=== PATIENT | male | born 1995 | race Caucasian/White ===

== ENCOUNTER → 2023-02-02 14:04 | Outpatient (CLI) | payer BC, SELFPAY | PROVIDERS: PCP Family Medicine; Visit Provider Internal Medicine Pulmonary Disease | DX: R06.81 Apnea, not elsewhere classified (principal); R40.0 Somnolence; R53.83 Other fatigue | CPT/HCPCS: G0399 ==

== ENCOUNTER 2023-09-07 06:44 | Day surgery (SDC) | payer BC, SELFPAY ==
[2023-09-07 07:32] VITALS: BP 139/77; PULSE 59; RESP 16; TEMP 36.6; O2SAT 100; BMI 32.5
[2023-09-07] MEDS: LACTATED RINGERS 1000ML 1,000 ML 25 ML IV (07:41)
--- NOTE | 2023-09-07 08:02 | EXP.ANES.CKL ---
[facility] Disclaimer: The information contained in this section may have been updated after the patient was seen, as this information can be updated by other users. Medical History Congestion of left ear Daytime somnolence Disorder of both eustachian tubes Fatigue Retraction of tympanic membrane of left ear Witnessed episode of apnea Surgical History Hx of cholecystectomy [place] teeth extracted Family History Other Coronary artery disease Heart attack Hyperlipidemia Hypertension Social History (Updated 09/03/23 @ 10:03 by Harriett Bradshaw RN) Smoking Status: Never smoker second hand exposure: No alcohol intake: current substance use type: denies use current occupational status: employed Travel in the last 8 weeks: None adopted: No household members: spouse housing: house marital status: number of children: 0 education level: college service: No custodial: No pets and animals: Yes leisure activities: sports and music Hx Recent Travel: No sexually active: Yes well-balanced diet: daily or most days caffeine: Yes during the past year weight has: remained stable physical activity: walking frequency: 3-4 times per week duration: 15-30 minutes/day ad/mu-ism: [employer] special ad needs: No agree to transfusion: Yes water heater temp set < 120 deg: Yes working smoke detector in home: Yes fire extinguisher in home: No carbon monox detector in home: No firearms in home: No [facility] Anesthesia Checklist Patient Identification Patient Identification: Arm Band Structural Data Admitted From: Home Planned Operative Procedure/s: Left Myringotomy Tube Placement Consent for Planned Operative Procedure(s) Verified: Yes Verified Documents: Surgical Consent and History and Physical NPO Status Verified Time NPO: 00:00 Additional verifications Anesthesia Reactions: No Hx Blood Transfusions: No Blood Transfusion Reaction: No Airway Assessment Mallampati Score:: Class I C-Spine Mobility Assessed: Yes TMJ Mobility Assessed: Yes Dentition: Good Dentition Neurological Assessment Level of Consciousness: Awake and Alert Anesthesia Plan Anesthesia Risk discussed: Yes Anesthesia Plan: Verified ASA Class: II Anesthesia Type: General
== END 2023-09-07 08:21 | disposition home or self-care (01) ==
PROVIDERS: PCP Family Medicine; Visit Provider Student in an Organized Health Care Education/Training Program
DX: Z53.9 Procedure and treatment not carried out, unspecified reason (principal)